=== PATIENT | male | born 1960 | race Caucasian/White ===

== ENCOUNTER → 2018-08-01 | Outpatient (CLI) | payer MEDICARE, OTHER ==
--- NOTE | 2018-08-01 13:20 | REP ---
Prostate sonography: History: Abnormal prostate exam. Sonographic findings: Trans rectal prostate sonography demonstrates unremarkable seminal vesicles. Prostate gland is heterogeneously enlarged with calcifications and cystic changes noted. Glandular dimensions are measured at 5.9 x 4.3 x 5.0 cm with a calculated glandular volume of 65.1 ml. Transrectal sonographic guidance provided to Dr. Rose who performed trans rectal ultrasound guided needle biopsy procedure . Electronically Signed by Ezekiel Llamas MD 08/01/2018 01:11 P
== END ==
LOC: M SMT PRO 10:06
PROVIDERS: ATTEND Urology
DX: N40.2 Nodular prostate without lower urinary tract symptoms (principal)
CPT/HCPCS: 55700; 76872; 76942; G0416